=== PATIENT | male | born 1980 | race Caucasian/White ===

== ENCOUNTER 2020-09-11 18:02 | Emergency (ER) | payer BC ==
[~2020-09-11] VITALS: Ht 172.7 cm; Wt 81.6 kg
--- NOTE | 2020-09-11 18:03 | NUR ---
Patient brought in by [facility] 82 for ETOH and possible Benzodiazepine as stated by , patient denies benzodiazepine use, patient is alert and oriented
--- NOTE | 2020-09-11 18:18 | NUR ---
at bedside for assessment
[2020-09-11] MEDS ORDERED: IV NORMAL SALINE 1000 ML BAG IV ONE (18:30)
[2020-09-11 18:45] LABS: HEMATOCRIT 46.5 % (36.7-47.1); MEAN CORPUSCULAR HEMOGLOBIN 31.5 uug (23.8-33.4); MEAN CORPUSCULAR VOLUME 93.5 fL (73.0-96.2); PLATELET COUNT (AUTO) 269 K/uL (152-348)
[2020-09-11 18:47] LABS: CREATININE 0.9 mg/dL (0.6-1.3); POTASSIUM 3.8 mmol/L (3.5-5.1)
[2020-09-11 18:53] LABS: BILIRUBIN,DIRECT 0.1 mg/dL (0.0-0.2); BILIRUBIN,TOTAL 0.6 mg/dL (0.2-1.0); TOTAL PROTEIN, SERUM 7.3 g/dL (6.4-8.2)
--- NOTE | 2020-09-11 19:03 | NUR ---
NATALY noted doing a wellness check, patient denies drug use and states he does not wish to hurt himself. Awaiting urine sample
--- NOTE | 2020-09-11 19:05 | NUR ---
Dr. Love notified of mike VALDEZ MD at bedside at this time.
--- NOTE | 2020-09-11 19:18 | NUR ---
Patient is refusing IVF, patient stated he needed to urinate, urinal provided but patient refused to use it. aware.
--- NOTE | 2020-09-11 19:26 | NUR ---
Patient connected to IVF.
--- NOTE | 2020-09-11 19:29 | NUR ---
Family at bedside.
[2020-09-11] MEDS ORDERED: LORAZEPAM 2 MG/1 ML VIAL IV ONE (19:30)
[2020-09-11] MEDS ORDERED: LORAZEPAM 2 MG/1 ML VIAL ONE (19:34)
[2020-09-11 20:33] LABS: *AMPHETAMINE, URINE NEGATIVE (NEGATIVE); *CANNABINOID, URINE NEGATIVE (NEGATIVE); *COCCAINE, URINE NEGATIVE (NEGATIVE); *OPIATE, URINE NEGATIVE (NEGATIVE); *PHENCYCLIDINE SCREEN,URINE NEGATIVE (NEGATIVE)
--- NOTE | 2020-09-11 21:00 | NUR ---
Patient asleep, no distress noted.
[2020-09-11] MEDS ORDERED: IV D5 1/2 NS 1000 ML 1,000 ML IV ONE (21:30)
--- NOTE | 2020-09-12 01:00 | NUR ---
patient awake at this time, a/o x3, no distress, ambulates with steady gait.
[2020-09-12] MEDS ORDERED: CHLO25CA22 PO (01:05)
--- NOTE | 2020-09-12 01:05 | NUR ---
Dr. Love at bedside speaking with patient.
[2020-09-12] MEDS ORDERED: LORAZEPAM 2 MG/1 ML VIAL IV ONE (01:15)
[2020-09-12] MEDS ORDERED: LORAZEPAM 2 MG/1 ML VIAL ONE (01:17)
--- NOTE | 2020-09-12 01:35 | NUR ---
Patient discharged to home in stable condition. Written and verbal after care instructions given. Patient verbalizes understanding of instructions. Stressed follow up or return to ER for worsening symptoms. [employer] is here to picking supervisor patient.
[2020-09-12 01:36] VITALS: BP 127/81
== END 2020-09-12 01:37 | disposition home or self-care (01) ==
LOC: ER 18:03
DX: F10.229 Alcohol dependence with intoxication, unspecified (principal); Y90.8 Blood alcohol level of 240 mg/100 ml or more; R94.31 Abnormal electrocardiogram [ECG] [EKG]; E87.0 Hyperosmolality and hypernatremia; E87.8 Other disorders of electrolyte and fluid balance, not elsewhere classified; I10 Essential (primary) hypertension; Z79.899 Other long term (current) drug therapy; Z91.81 History of falling
CPT/HCPCS: 36415; 70450; 72125; 80048; 80076; 80307; 80320; 85025; 96361; 96374; 96376; 99285; J2060 ×2; J3490; A4663; G0480

== ENCOUNTER 2021-06-28 12:36 | Emergency (ER) | payer SELFPAY ==
[~2021-06-28] VITALS: Ht 172.7 cm; Wt 90.7 kg
[2021-06-28] MEDS ORDERED: ALPR1TAB7 PO (12:54)
--- NOTE | 2021-06-28 12:55 | NUR ---
Patient ambulatory, alert and orientedx4 with complaints of anxiety for today, pt stated he have history of anxiety and needs refill of his medications. Denies nausea/vomiting,SOB,chest pain. Vitals stable.
--- NOTE | 2021-06-28 12:58 | NUR ---
MD at bedside, medical screening exam in progress.
[2021-06-28] MEDS ORDERED: ALPR0.5T8 PO (13:03)
[2021-06-28 13:09] VITALS: BP 135/85
--- NOTE | 2021-06-28 13:09 | NUR ---
Patient discharged to home in stable condition. Written and verbal after care instructions given. Patient verbalizes understanding of instructions. Stressed follow up or return to ER for worsening s/s.
== END 2021-06-28 13:10 | disposition home or self-care (01) ==
LOC: ER 12:37
DX: F41.9 Anxiety disorder, unspecified (principal); Z76.0 Encounter for issue of repeat prescription
CPT/HCPCS: A4663